=== PATIENT | female | born 1985 | race African-American/Black ===

== ENCOUNTER 2019-04-02 12:37 | Inpatient (IN) | payer OTHER ==
[2019-04-02] MEDS ORDERED: Promethazine HCl 25 MG/ML VIAL IM PRN (12:46)
[2019-04-02] MEDS ORDERED: Ondansetron PF 4 MG/2 ML Vial SLOW IVP PRN (12:46)
[2019-04-02] MEDS ORDERED: Acetaminophen 500 MG TAB PO PRN (12:46)
[2019-04-02 13:22] LABS: Hemoglobin 9.1 g/dL (12.0-16.0); Mean Corpuscular HGB CONC 33.7 g/dL (32.0-36.0); Mean Corpuscular Hemoglobin 21.6 pg (27.0-31.0); Mean Corpuscular Volume 64.1 fL (78.0-98.0); Platelet Count 212 thou/uL (130-400); White Blood Cell (WBC) Count 11.6 thou/uL (4.8-10.8)
--- NOTE | 2019-04-02 13:45 | ULT ---
OBSTETRIC SONOGRAM LIMITED SONOGRAPHIC BIOPHYSICAL PROFILE EXAM: HISTORY: Preeclampsia. Third trimester gestation. FINDINGS: Single intrauterine gestation in cephalic presentation. Cervix is closed and 2.8 cm. Grade 1 placenta is anterior. Heart motion at 133 bpm. Advanced age limits anatomic detail. No gross intracranial abnormalities. Measurements are as follows: Biparietal diameter: 34 weeks 6 days. Head circumference: 34 weeks 5 days. Abdominal circumference: 33 weeks 2 days. Femur length: 28 weeks 3 days. [place] 10th percentile. Estimated weight: 1914 g (4 lbs. 4 oz.). Amniotic fluid index: 20.4. Good tone, gross movements, and breathing movements were demonstrated. IMPRESSION: 1. Single viable intrauterine gestation with estimated gestational age based on today's sonogram at 33 weeks 0 days. Cephalic presentation. Somewhat shortened cervix of 2.8 cm. 2. Sonographic biophysical profile score 8/8. Transcribed Date/Time: 04/02/2019 2:52 PM
[2019-04-02 14:04] LABS: ALT (SGPT) Less than 7 U/L (8-55); AST (SGOT) 13 U/L (5-34); Alkaline Phosphatase 121 U/L (40-150); Anion Gap 11 mmol/L (10-20); BUN (Urea Nitrogen) 4 mg/dL (7.0-18.7); Bilirubin, Total 0.3 mg/dL (0.2-1.2); Calc. Creatinine Clearance 0 mL/min (70-130); Calcium 8.9 mg/dL (7.8-10.44); Carbon Dioxide 20 mmol/L (22-29); Chloride 105 mmol/L (98-107); Estimated GFR-MDRD Greater than 90; Globulin 3.3 g/dL (2.4-3.5); Glucose 142 mg/dL (70-105); Potassium 3.7 mmol/L (3.5-5.1); Protein, Total 6.3 g/dL (6.0-8.3); Sodium 132 mmol/L (136-145)
[2019-04-02 14:58] VITALS: BMI 44.6
[2019-04-03] MEDS ORDERED: Betamet Acet/Betamet Na Ph 30 MG/5 ML VIAL IM SCH (10:00)
[2019-04-03 14:03] LABS: Urine Total Volume 1500 mL (600-1600)
[2019-04-03 14:15] LABS: Protein - 24 Hr 195 mg/24 hr (Less than 300); Protein, Urine 13 mg/dL (1-14)
== END 2019-04-03 15:21 | disposition home or self-care (01) | DRG 833 ==
LOC: L&D/OP 12:37 → L&D 12:37 → EDSTATUS 12:51
PROVIDERS: ADMIT Family Medicine; ATTEND Family Medicine
DX: O99.213 Obesity complicating pregnancy, third trimester (principal); E66.9 Obesity, unspecified; Z3A.33 33 weeks gestation of pregnancy; R03.0 Elevated blood-pressure reading, without diagnosis of hypertension
CPT/HCPCS: 36415; 76815; 76819; 80053; 84156; 85027; J0702

== ENCOUNTER 2019-04-25 19:59 | Inpatient (IN) | payer OTHER ==
[2019-04-25] MEDS ORDERED: HYDROcodone/Acetaminophen 5/325 mg Tablet PO PRN (20:45)
[2019-04-25] MEDS ORDERED: Diphenoxylate HCl/Atropine Tablet PO PRN (20:45)
[2019-04-25] MEDS ORDERED: NS w/ Oxytocin 10 units 500 ML IV SCH ×2 (20:45)
[2019-04-25] MEDS ORDERED: NS / Oxytocin 40 units/1000ml 1,000 ML IV PRN (20:45)
[2019-04-25] MEDS ORDERED: Ondansetron PF 4 MG/2 ML Vial IVP PRN (20:45)
[2019-04-25] MEDS ORDERED: Lidocaine 1% (PF) 30 ML VIAL SC PRN (20:45)
[2019-04-25] MEDS ORDERED: Ibuprofen 800 MG TAB PO PRN (20:45)
[2019-04-25] MEDS ORDERED: Carboprost 250 MCG/ML AMP IM PRN (20:45)
[2019-04-25] MEDS ORDERED: Butorphanol Tartrate 1 MG/ML VIAL SLOW IVP PRN (20:45)
[2019-04-25] MEDS ORDERED: Promethazine HCl 25 MG/ML VIAL IM PRN (20:45)
[2019-04-25] MEDS ORDERED: Misoprostol 200 MCG TAB PR PRN (20:45)
[2019-04-25 21:54] VITALS: BMI 45.4
[2019-04-25] MEDS: Lactated Ringer's 1,000 ML IV SCH (22:09)
[2019-04-25] MEDS: Misoprostol 100 MCG TAB PO SCH (22:10)
[2019-04-25 22:12] LABS: Hemoglobin 8.9 g/dL (12.0-16.0); Mean Corpuscular HGB CONC 32.6 g/dL (32.0-36.0); Mean Corpuscular Hemoglobin 20.7 pg (27.0-31.0); Mean Corpuscular Volume 63.6 fL (78.0-98.0); Mean Platelet Volume 7.2 fL (7.4-10.4); Platelet Count 200 thou/uL (130-400); RBC Distribution Width 19.7 % (11.5-14.5); White Blood Cell (WBC) Count 11.6 thou/uL (4.8-10.8)
[2019-04-25 22:29] LABS: ALT (SGPT) 11 U/L (8-55); AST (SGOT) 29 U/L (5-34); Alkaline Phosphatase 148 U/L (40-150); Anion Gap 17 mmol/L (10-20); BUN (Urea Nitrogen) 5 mg/dL (7.0-18.7); Bilirubin, Total 0.2 mg/dL (0.2-1.2); Calc. Creatinine Clearance 241 mL/min (70-130); Calcium 8.7 mg/dL (7.8-10.44); Carbon Dioxide 18 mmol/L (22-29); Chloride 105 mmol/L (98-107); Estimated GFR-MDRD Greater than 90; Globulin 3.6 g/dL (2.4-3.5); Glucose 90 mg/dL (70-105); Potassium 3.9 mmol/L (3.5-5.1); Protein, Total 6.6 g/dL (6.0-8.3); Sodium 136 mmol/L (136-145)
[2019-04-25 22:46] LABS: Syphilis Antibody Nonreactive (Nonreactive); Syphilis Antibody Index 0.03 S/CO (<1.00 Non-Reactive)
[2019-04-25 23:44] LABS: HBSAg Index 0.31 S/CO (0-0.99); Hep B Surf Ag Non-Reactive S/CO (NonReactive)
[2019-04-26] MEDS: Lactated Ringer's 1,000 ML IV SCH (03:39)
[2019-04-26] MEDS: Misoprostol 100 MCG TAB PO SCH ×2 (03:40→06:31)
[2019-04-26] MEDS ORDERED: Lidocaine 1% (PF) 30 ML VIAL ONE (05:44)
[2019-04-26] MEDS ORDERED: NS / Oxytocin 40 units/1000ml 1,000 ML ONE (05:45)
[2019-04-26] MEDS ORDERED: Lanolin Ointment 7 GM TUBE TOP PRN (07:39)
[2019-04-26] MEDS ORDERED: Ondansetron PF 4 MG/2 ML Vial IVP PRN (07:39)
[2019-04-26] MEDS ORDERED: Milk Of Magnesia 30 ML UDCUP PO PRN (07:39)
[2019-04-26] MEDS ORDERED: Benzocaine-Menthol 82.5 ML CAN TOP PRN (07:39)
[2019-04-26] MEDS ORDERED: diphenhydrAMINE 25 MG CAP PO PRN (07:39)
[2019-04-26] MEDS ORDERED: cloNIDine 0.1 MG TAB PO PRN (07:39)
[2019-04-26] MEDS ORDERED: NS / Oxytocin 40 units/1000ml 1,000 ML IV SCH (07:39)
[2019-04-26] MEDS ORDERED: Bisacodyl 10 MG SUPP PR PRN (07:39)
[2019-04-26] MEDS ORDERED: HYDROcodone/Acetaminophen 5/325 mg Tablet PO PRN ×2 (07:39)
[2019-04-26] MEDS: Prenatal Vitamin 1 TAB PO SCH (09:48)
[2019-04-26] MEDS: Docusate Calcium (SURFAK) 240 MG CAP PO SCH ×2 (09:48→21:22)
[2019-04-26] MEDS: Ferrous Sulfate 325 MG TAB PO SCH ×2 (09:48→17:35)
[2019-04-26] MEDS: Ibuprofen 800 MG TAB PO SCH ×2 (14:29→21:22)
[2019-04-27] MEDS: Ibuprofen 800 MG TAB PO SCH ×3 (05:33→21:17)
[2019-04-27 06:05] LABS: Hemoglobin 7.3 g/dL (12.0-16.0); Mean Corpuscular HGB CONC 31.7 g/dL (32.0-36.0); Mean Corpuscular Hemoglobin 20.5 pg (27.0-31.0); Mean Corpuscular Volume 64.7 fL (78.0-98.0); Mean Platelet Volume 5.8 fL (7.4-10.4); Platelet Count 183 thou/uL (130-400); RBC Distribution Width 19.6 % (11.5-14.5); Red Blood Cell (RBC) Count 3.55 mill/uL (4.20-5.40); White Blood Cell (WBC) Count 12.6 thou/uL (4.8-10.8)
[2019-04-27] MEDS: Docusate Calcium (SURFAK) 240 MG CAP PO SCH ×2 (09:31→21:17)
[2019-04-27] MEDS: Prenatal Vitamin 1 TAB PO SCH (09:31)
[2019-04-27] MEDS: Ferrous Sulfate 325 MG TAB PO SCH ×2 (09:31→18:20)
[2019-04-28] MEDS: Ibuprofen 800 MG TAB PO SCH (06:20)
[2019-04-28 08:28] VITALS: BP 125/62; TEMP 98.5
[2019-04-28] MEDS: Ferrous Sulfate 325 MG TAB PO SCH (08:42)
[2019-04-28] MEDS: Docusate Calcium (SURFAK) 240 MG CAP PO SCH (08:42)
[2019-04-28] MEDS: Prenatal Vitamin 1 TAB PO SCH (08:42)
== END 2019-04-28 11:12 | disposition home or self-care (01) | DRG 806 ==
LOC: L&D 19:59 → 3SW 04-26 08:27
PROVIDERS: ADMIT Family Medicine; ATTEND Family Medicine
PROC: 10E0XZZ Delivery of Products of Conception, External Approach (ICD-10-PCS; principal; 2019-04-26)
PROC: 3E0P7VZ Introduction of Hormone into Female Reproductive, Via Natural or Artificial Opening (ICD-10-PCS; 2019-04-26)
PROC: 3E033VJ Introduction of Other Hormone into Peripheral Vein, Percutaneous Approach (ICD-10-PCS; 2019-04-26)
DX: O13.4 Gestational [pregnancy-induced] hypertension without significant proteinuria, complicating childbirth (principal); O98.52 Other viral diseases complicating childbirth; Z37.0 Single live birth; O99.214 Obesity complicating childbirth; E66.9 Obesity, unspecified; O99.02 Anemia complicating childbirth; D64.9 Anemia, unspecified; B00.9 Herpesviral infection, unspecified; Z3A.37 37 weeks gestation of pregnancy
CPT/HCPCS: 36415; 80053; 85027; 86780; 86850; 86900; 86901; 87340; 88307; J0595; J2001

== ENCOUNTER 2021-09-03 15:48 | Outpatient (CLI) | payer MEDICAID, OTHER | END 2021-09-03 15:49 | disposition home or self-care (01) | LOC: BICRAD 15:48 | PROVIDERS: ATTEND Family Medicine | DX: M54.50 Low back pain, unspecified (principal); M47.816 Spondylosis without myelopathy or radiculopathy, lumbar region; M41.9 Scoliosis, unspecified | CPT/HCPCS: 72100 ==

== ENCOUNTER 2022-09-06 10:55 | Outpatient (CLI) | payer OTHER | END 2022-09-06 10:56 | disposition home or self-care (01) | LOC: DTY/OP 10:55 | PROVIDERS: ATTEND Surgery | DX: E66.01 Morbid (severe) obesity due to excess calories (principal) | CPT/HCPCS: 97802 ==

== ENCOUNTER 2023-01-22 19:30 | Outpatient (CLI) | payer OTHER | END 2023-01-22 19:31 | disposition home or self-care (01) | LOC: SLEEPLAB 19:30 | PROVIDERS: ATTEND Nurse Practitioner Family | DX: G47.33 Obstructive sleep apnea (adult) (pediatric) (principal); E66.9 Obesity, unspecified; Z68.43 Body mass index [BMI] 50.0-59.9, adult | CPT/HCPCS: 95810 ==